=== PATIENT | female | born 1980 | race Caucasian/White ===

== ENCOUNTER 2022-01-10 10:51 | Day surgery (SDC) | payer MEDICAID ==
[~2022-01-10] VITALS: Ht 172.7 cm; Wt 68.0 kg
[~2022-01-10 10:51] MED LIST: ASPIRIN325 MG PO; LISINOP/HCTZ1 TAB PO; TYLENOL PO
[2022-01-10] MEDS ORDERED: DIOVAN HCT160 MG/25 PO (11:10)
[2022-01-10] MEDS ORDERED: TYLENOL325 M2 PO (11:10)
[2022-01-10 13:10] VITALS: BP 105/77
== END 2022-01-10 14:01 | disposition home or self-care (01) ==
LOC: ENDO 10:51 → ORM 12:00 → ENDO 14:01
PROVIDERS: ATTEND Surgery
DX: Z12.11 Encounter for screening for malignant neoplasm of colon (principal); I10 Essential (primary) hypertension; Z86.010 Personal history of colon polyps